=== PATIENT | female | born 1970 | race Caucasian/White ===

== ENCOUNTER → 2024-03-15 07:52 | Outpatient (REF) | payer SELFPAY | LOC: HWRAD 07:52 | PROVIDERS: ATTENDING PHYSICIAN Internal Medicine | DX: E78.5 Hyperlipidemia, unspecified (principal) | CPT/HCPCS: 75571 ==

== ENCOUNTER → 2024-04-18 07:50 | Outpatient (REF) | payer BC, SELFPAY | LOC: HWWDC 07:50 | PROVIDERS: ATTENDING PHYSICIAN Internal Medicine | DX: Z12.31 Encounter for screening mammogram for malignant neoplasm of breast (principal) | CPT/HCPCS: 77063; 77067 ==

== ENCOUNTER 2025-02-26 20:45 | Emergency (ER) | payer BC, SELFPAY ==
[2025-02-26 20:46] VITALS: BP 121/73
[2025-02-26 23:00] VITALS: BP 129/77
--- NOTE | 2025-02-26 23:16 | ED.GENMED ---
History of Present Illness
General
Chief Complaint: Musculo-Skeletal Complaint
Source: patient
Exam Limitations: none
Time Seen by Provider: 02/26/25 22:48
History of Present Illness
History of Present Illness:
54yo [id number] female with a history of ulcerative colitis, hypertension, hyperlipidemia presenting with her for evaluation of her left shoulder injury that occurred around 8 PM this evening. Patient was walking when she tripped.
She tried to catch herself with her left arm and felt a pop in the shoulder. Patient was having severe pain after the incident and thought she dislocated her shoulder. She felt the joint pop back into place while in triage. She continues to have
pain but states her range of motion has improved. No paresthesias. No prior history of shoulder dislocations.
Phy Exam
General Physical Exam
General Presentation: well appearing and no apparent distress
General Skin: warm and dry
General Habitus: normal
General Mental: alert
ENT Exam
ENT Exam: normocephalic
Neurological Exam
Neurological Exam: alert
[place] Coma Scale
Eye Opening: Spontaneous
Verbal Response: Oriented
Motor Response: Obeys Commands
GCS Total Score: 15
Musculoskeletal Exam
Musculoskeletal Exam: other (L shoulder: Normal to inspection without deformity or skin changes. +Generalized tenderness. ROM decreased 2/2 pain. ROM of elbow intact. Sensation in axillary nerve distribution intact. 2+ radial pulse. )
Skin Exam
Skin Exam: normal color and warm/dry
Psychiatric Exam
Psychiatric Exam: normal mood/affect
Course
Orders/Labs/Results
Orders:
Orders
02/26/25 20:48
Shoulder, Left 2 View CR [CR Shoulder - Left Min 2 View*] Urgent
Comment:
Reason For Exam: fall
02/26/25 23:18
Sling Left-Treatment ONCE
Vital Signs
Initial and Last Documented VS:
Initial Vital Signs
Temp Pulse Resp BP Pulse Ox
97.9 F 75 22 121/73 91
02/26/25 20:46 02/26/25 20:46 02/26/25 20:46 02/26/25 20:46 02/26/25 20:46
Last Documented Vital Signs
Temp Pulse Resp BP Pulse Ox
97.9 F 84 18 129/77 96
02/26/25 20:46 02/26/25 23:30 02/26/25 23:30 02/26/25 23:00 02/26/25 23:30
MDM/Problems Addressed
Differential Diagnosis Includes:
54yoF here with L shoulder pain after an injury. Thinks she dislocated it and it reduced in the waiting room. No deformity on exam. LUE is neurovascularly intact. Differential diagnosis includes: Shoulder dislocation, rotator cuff injury, fracture
X-rays of left shoulder obtained which are negative for injuries. Patient placed in sling and supportive care discussed. She was advised to follow-up with orthopedics. Patient discharged in stable condition.
*Pulse Oximetry
SaO2: 91
Oxygen Mode of Delivery: Room air
Patient hypoxic: no (96%)
*Critical Care Note
Total Time (30-74mins, 75-104mins- exclusive of procedures): Not Applicable
ED Attending Note
-
Portions of this chart may have been created with voice recognition software.� Occasional wrong word or��sound alike� substitutions may have occurred due to the inherent limitations of voice recognition software.
Discharge Plan
Departure
Patient Disposition: Home (Routine Discharge)
Date of Disposition: 02/26/25
Time of Disposition: 23:17
Patient with high blood pressure during this ER visit?: No
Discharge Problem:
Injury of left shoulder
Instructions: Shoulder pain - ED discharge instructions
Referrals:
Oziel Leach MD [Family Provider, Internal Medicine]
Manjinder Littlejohn MD [Active, Orthopedics]
Activity Restrictions/Additional Instructions:
Wear sling for immobilization. Apply ice to affected area. Take Tylenol and ibuprofen as needed for pain.
Please follow-up with orthopedics.
Interventions
Interventions:
*Risk Screen - Suicide Last Done: 02/26/25 20:46
*General Assessment Last Done: 02/26/25 20:46
*Neglect/Abuse Screening Last Done: 02/26/25 20:46
*ED- Fall Risk Assessment Last Done: 02/26/25 23:00
*ED COVID-19 Vaccine History Last Done: 02/26/25 23:00
*Nursing Disposition Last Done: 02/26/25 23:31
ED-Musculoskeletal Assessment Last Done: 02/26/25 22:48
Discharge Date and Time
Discharge Date/Time: 02/26/25 23:31
Print Language: WELSH
== END 2025-02-26 23:31 | disposition home or self-care (01) ==
LOC: EMR 20:45
PROVIDERS: EMERGENCY PHYSICIAN Emergency Medicine; FAMILY PHYSICIAN Internal Medicine
DX: S49.92XA Unspecified injury of left shoulder and upper arm, initial encounter (principal); W01.0XXA Fall on same level from slipping, tripping and stumbling without subsequent striking against object, initial encounter; Y93.01 Activity, walking, marching and hiking; K51.90 Ulcerative colitis, unspecified, without complications; I10 Essential (primary) hypertension; E78.5 Hyperlipidemia, unspecified
CPT/HCPCS: 99283; 73030

== ENCOUNTER → 2025-05-24 10:06 | Outpatient (REF) | payer BC, SELFPAY | LOC: HWWDC 10:06 | PROVIDERS: ATTENDING PHYSICIAN Internal Medicine | DX: Z12.31 Encounter for screening mammogram for malignant neoplasm of breast (principal) | CPT/HCPCS: 77063; 77067 ==